=== PATIENT | male | born 1960 | race Hispanic/Latino ===

== ENCOUNTER 2018-04-20 21:46 | Emergency (ER) | payer OTHER ==
[2018-04-20 23:16] LABS: CREATININE 0.9 mg/dL (0.5-1.5); POTASSIUM 3.5 mmol/L (3.5-5.1)
[2018-04-20 23:20] LABS: BASOPHILS % (AUTO) 0.4 % (0.0-5.0); EOSINOPHILS % (AUTO) 2.1 % (0.0-8.0); HEMATOCRIT 44.9 % (42-54); LYMPHOCYTES % (AUTO) 15.3 % (21.0-51.0); MEAN CORPUSCULAR HEMOGLOBIN 30.5 pg (27.0-33.0); MEAN CORPUSCULAR HGB CONC 34.9 g/dL (32.0-36.0); MEAN CORPUSCULAR VOLUME 87.2 fL (79-99); MONOCYTES % (AUTO) 7.8 % (3.0-13.0); NEUTROPHILS % (AUTO) 74.4 % (40.0-77.0); PLATELET COUNT (AUTO) 264 K/uL (130-400); RED BLOOD CELL COUNT(AUTO) 5.15 MIL/uL (4.50-6.20); RED CELL DISTRIBUTION WIDTH 13.5 % (11.0-15.5)
[2018-04-20 23:21] LABS: ALBUMIN 3.6 g/dL (3.5-5.0); BILIRUBIN,DIRECT 0.1 mg/dL (0.0-0.3); BILIRUBIN,TOTAL 0.4 mg/dL (0.2-1.0); TOTAL PROTEIN, SERUM 7.4 g/dL (6.0-8.3)
[2018-04-20 23:27] LABS: APPEARANCE,URINE Cloudy (CLEAR); BACTERIA,URINE None Seen /HPF (None Seen); BILIRUBIN,URINE Negative (NEGATIVE); COLOR,URINE Dark Yellow (YELLOW); GLUCOSE, URINE (UA) >=1000 mg/dL (NEGATIVE); KETONES,URINE Trace mg/dL (NEGATIVE); LEUKOCYTE ESTERASE ,URINE Moderate (NEGATIVE); MUCUS,URINE Few LPF (None Seen); NITRATE,URINE Negative (NEGATIVE); OCCULT BLOOD,URINE Negative (NEGATIVE); PROTEIN,URINE POS 1+ (NEGATIVE); RBC,URINE None Seen /HPF (0-1); SQUAMOUS EPITHELIAL CELL,UR Few /HPF (0-2); YEAST,URINE BUDDING None Seen /HPF (None Seen)
[2018-04-20 23:28] LABS: CALCIUM OXALATE CRYSTALS,UR Moderate /LPF (None Seen)
[2018-04-20] MEDS ORDERED: SODIUM CHLORIDE 0.9% 1000ML 1,000 ML IV ONE (23:50)
[2018-04-21] MEDS ORDERED: LEVOFLOXACIN 500 MG/D5W 100 ML 100 ML ONE (00:16)
== END 2018-04-21 01:28 | disposition left against medical advice (07) ==
LOC: EDH 21:46
DX: T25.231A Burn of second degree of right toe(s) (nail), initial encounter (principal); T31.0 Burns involving less than 10% of body surface; L03.031 Cellulitis of right toe; E11.9 Type 2 diabetes mellitus without complications; I10 Essential (primary) hypertension; E78.5 Hyperlipidemia, unspecified; Z79.84 Long term (current) use of oral hypoglycemic drugs; Z79.899 Other long term (current) drug therapy; X08.8XXA Exposure to other specified smoke, fire and flames, initial encounter; Y93.89 Activity, other specified; Y92.89 Other specified places as the place of occurrence of the external cause; Y99.8 Other external cause status
CPT/HCPCS: 36415 ×2; 73660; 80048; 80076; 81001; 83605; 85025; 87040 ×2; 87070; 87076; 87077 ×3; 87186 ×3; 96365; 99285; J1956; J7030

== ENCOUNTER → 2023-03-28 | Outpatient (CLI) | payer BC, SELFPAY ==
[2023-03-28 21:52] VITALS: PULSE 78; RESP 12
[2023-03-28 22:30] VITALS: PULSE 77; RESP 12
[2023-03-28 23:00] VITALS: PULSE 72; RESP 22
[2023-03-28 23:31] VITALS: PULSE 70; RESP 16
[2023-03-28 23:53] VITALS: PULSE 69; RESP 20
[2023-03-29] VITALS (14 sets, daily range): PULSE 65–74; RESP 10–23
== END | disposition home or self-care (01) ==
LOC: SLP 20:09
PROVIDERS: ATTEND Nurse Practitioner Family
DX: G47.33 Obstructive sleep apnea (adult) (pediatric) (principal)
CPT/HCPCS: 95811

== ENCOUNTER 2023-05-07 23:25 | Inpatient (IN) | payer BC, SELFPAY ==
[~2023-05-07] VITALS: Ht 167.6 cm; Wt 94.2 kg
[2023-05-07 23:54] LABS: BASOPHILS # (AUTO) 0.06 K/uL (0.00-0.20); BASOPHILS % (AUTO) 0.4 % (0.0-5.0); EOSINOPHILS # (AUTO) 0.35 K/uL (0.00-0.70); EOSINOPHILS % (AUTO) 2.3 % (0.0-8.0); IMMATURE GRANULOCYTE ABSOLUTE 0.04 K/uL (0-1); LYMPHOCYTES # (AUTO) 3.3 K/uL (1.0-4.8); LYMPHOCYTES % (AUTO) 21.5 % (21.0-51.0); MEAN CORPUSCULAR HEMOGLOBIN 29.5 pg (27.0-33.0); MEAN CORPUSCULAR HGB CONC 34.2 g/dL (32.0-36.0); MEAN CORPUSCULAR VOLUME 86.3 fL (79-99); MONOCYTES # (AUTO) 1.1 K/uL (0.1-1.0); NEUTROPHILS # (AUTO) 10.7 K/uL (1.8-7.7); NEUTROPHILS % (AUTO) 68.5 % (40.0-77.0); PLATELET COUNT (AUTO) 300 K/uL (130-400); RED BLOOD CELL COUNT(AUTO) 5.56 MIL/uL (4.50-6.20); RED CELL DISTRIBUTION WIDTH 13.6 % (11.0-15.5); WHITE BLOOD COUNT (AUTO) 15.5 K/uL (4.8-10.8)
[2023-05-08] MEDS ORDERED: LACTATED RINGERS 1000ML 1,000 ML IV ONE
[2023-05-08] MEDS ORDERED: ONDANSETRON 4MG INJ IVP ONE
[2023-05-08] MEDS ORDERED: KETOROLAC 15MG/ML VIAL (15MG/ML) IV ONE
[2023-05-08 00:07] LABS: CREATININE 1.1 mg/dL (0.5-1.5); POTASSIUM 3.8 mmol/L (3.5-5.1)
[2023-05-08 00:38] LABS: ALBUMIN 3.3 g/dL (3.5-5.0); BILIRUBIN,TOTAL 0.3 mg/dL (0.2-1.0); TOTAL PROTEIN, SERUM 7.7 g/dL (6.0-8.3)
[2023-05-08] MEDS ORDERED: IOHEXOL 350 MG/ML 100ML INFUS..BTL IV ONE (00:52)
[2023-05-08] MEDS ORDERED: MORPHINE 2 MG SYG IVP ONE (01:00)
[2023-05-08] MEDS ORDERED: ONDANSETRON 4MG INJ IV PRN (03:00)
[2023-05-08] MEDS: METRONIDAZOLE 500MG/100ML BAG 100 ML IV SCH ×3 (04:02→20:14)
[2023-05-08] MEDS: CEFTRIAXONE 2GM VIAL IVPB SCH (04:02)
[2023-05-08] MEDS: LACTATED RINGERS 1000ML 1,000 ML IV SCH ×3 (04:02→20:16)
[2023-05-08 04:25] VITALS: BP 128/71; PULSE 64; RESP 20
[2023-05-08 06:38] LABS: BASOPHILS # (AUTO) 0.03 K/uL (0.00-0.20); BASOPHILS % (AUTO) 0.3 % (0.0-5.0); EOSINOPHILS # (AUTO) 0.34 K/uL (0.00-0.70); EOSINOPHILS % (AUTO) 3.4 % (0.0-8.0); IMMATURE GRANULOCYTE ABSOLUTE 0.03 K/uL (0-1); LYMPHOCYTES # (AUTO) 3.4 K/uL (1.0-4.8); LYMPHOCYTES % (AUTO) 33.4 % (21.0-51.0); MEAN CORPUSCULAR HEMOGLOBIN 29.4 pg (27.0-33.0); MEAN CORPUSCULAR HGB CONC 33.9 g/dL (32.0-36.0); MEAN CORPUSCULAR VOLUME 86.8 fL (79-99); MONOCYTES # (AUTO) 0.8 K/uL (0.1-1.0); MONOCYTES % (AUTO) 7.7 % (3.0-13.0); NEUTROPHILS # (AUTO) 5.5 K/uL (1.8-7.7); NEUTROPHILS % (AUTO) 54.9 % (40.0-77.0); PLATELET COUNT (AUTO) 268 K/uL (130-400); RED BLOOD CELL COUNT(AUTO) 5.07 MIL/uL (4.50-6.20); RED CELL DISTRIBUTION WIDTH 13.8 % (11.0-15.5); WHITE BLOOD COUNT (AUTO) 10.1 K/uL (4.8-10.8)
[2023-05-08 07:00] LABS: ALBUMIN 2.8 g/dL (3.5-5.0); BILIRUBIN,TOTAL 0.2 mg/dL (0.2-1.0); CREATININE 0.9 mg/dL (0.5-1.5); MAGNESIUM 2.1 mg/dL (1.80-2.40); POTASSIUM 4.2 mmol/L (3.5-5.1); TOTAL PROTEIN, SERUM 6.6 g/dL (6.0-8.3)
[2023-05-08 07:14] LABS: HEMOGLOBIN A1C 7.2 % (4.0-6.0)
[2023-05-08 07:41] LABS: ERYTHROCYTE SEDIMENTATION RATE 18 MM/HR (0-20)
[2023-05-08 08:00] VITALS: BP 128/70; PULSE 62; RESP 18; O2SAT 98
[2023-05-08] MEDS: FAMOTIDINE 20MG VIAL IV SCH ×2 (09:23→20:14)
[2023-05-08] MEDS: ENOXAPARIN SODIUM 30 MG/0.3 ML SQ SCH (09:23)
[2023-05-08 12:00] VITALS: BP 131/71; PULSE 65; RESP 18
[2023-05-08] MEDS: MORPHINE 2 MG SYG IVP PRN ×2 (13:19→20:28)
[2023-05-08 16:00] VITALS: BP 126/72; PULSE 80; RESP 18
[2023-05-08 20:00] VITALS: BP 126/72; PULSE 83; RESP 18; O2SAT 98
[2023-05-09] VITALS: BP 118/70; PULSE 88; RESP 18
[2023-05-09] MEDS: LACTATED RINGERS 1000ML 1,000 ML IV SCH ×2 (03:00→10:41)
[2023-05-09] MEDS: METRONIDAZOLE 500MG/100ML BAG 100 ML IV SCH ×2 (03:50→10:57)
[2023-05-09] MEDS: CEFTRIAXONE 2GM VIAL IVPB SCH (03:51)
[2023-05-09 04:00] VITALS: BP 138/77; PULSE 72; RESP 20
[2023-05-09 08:00] VITALS: BP 123/70; PULSE 74; RESP 18; O2SAT 96
[2023-05-09] MEDS: FAMOTIDINE 20MG VIAL IV SCH (08:09)
[2023-05-09] MEDS: ENOXAPARIN SODIUM 30 MG/0.3 ML SQ SCH (08:10)
[2023-05-09 08:52] LABS: BASOPHILS # (AUTO) 0.04 K/uL (0.00-0.20); BASOPHILS % (AUTO) 0.4 % (0.0-5.0); EOSINOPHILS # (AUTO) 0.35 K/uL (0.00-0.70); EOSINOPHILS % (AUTO) 3.6 % (0.0-8.0); HEMATOCRIT 46.4 % (42-54); IMMATURE GRANULOCYTE ABSOLUTE 0.02 K/uL (0-1); LYMPHOCYTES # (AUTO) 2.9 K/uL (1.0-4.8); LYMPHOCYTES % (AUTO) 30.2 % (21.0-51.0); MEAN CORPUSCULAR HEMOGLOBIN 29.2 pg (27.0-33.0); MEAN CORPUSCULAR HGB CONC 34.1 g/dL (32.0-36.0); MEAN CORPUSCULAR VOLUME 85.6 fL (79-99); MONOCYTES # (AUTO) 0.5 K/uL (0.1-1.0); MONOCYTES % (AUTO) 5.6 % (3.0-13.0); NEUTROPHILS # (AUTO) 5.8 K/uL (1.8-7.7); PLATELET COUNT (AUTO) 304 K/uL (130-400); RED BLOOD CELL COUNT(AUTO) 5.42 MIL/uL (4.50-6.20); RED CELL DISTRIBUTION WIDTH 13.4 % (11.0-15.5); WHITE BLOOD COUNT (AUTO) 9.6 K/uL (4.8-10.8)
[2023-05-09 09:05] LABS: CREATININE 0.8 mg/dL (0.5-1.5)
[2023-05-09 09:09] LABS: BILIRUBIN,TOTAL 0.3 mg/dL (0.2-1.0); TOTAL PROTEIN, SERUM 7.2 g/dL (6.0-8.3)
[2023-05-09 11:51] VITALS: BP 126/69; PULSE 71; RESP 18
== END 2023-05-09 13:15 | disposition home or self-care (01) | DRG 440 ==
LOC: EDH 23:25 → EDHIP 05-08 02:59 → 3DH 05-08 04:07
PROVIDERS: ADMIT Hospitalist; ATTEND Hospitalist
DX: K85.90 Acute pancreatitis without necrosis or infection, unspecified (principal); E11.9 Type 2 diabetes mellitus without complications; I10 Essential (primary) hypertension; D72.89 Other specified disorders of white blood cells; E78.5 Hyperlipidemia, unspecified; E78.00 Pure hypercholesterolemia, unspecified; E66.9 Obesity, unspecified; Z68.33 Body mass index [BMI] 33.0-33.9, adult
CPT/HCPCS: 36415; 71045; 74177; 76705; 80053; 80061; 82150; 82948; 83036; 83690; 83735; 84145; 84478; 85025; 85651; 86140; 93005; G0378; J0696; J1650; J1885; J2270; J2405; J3490; J7120; Q9967